=== PATIENT | female | born 1985 | race Two or more races ===

== ENCOUNTER 2022-03-16 19:30 | Emergency (ER) | payer MEDICAID, OTHER ==
[~2022-03-16] VITALS: Ht 152.4 cm; Wt 90.8 kg
[2022-03-16 20:40] VITALS: BP 136/93
[2022-03-16 21:27] LABS: Urine Bacteria MOD /hpf (None Seen); Urine Blood Negative /uL (Negative); Urine Mucus FEW (None Seen); Urine Specific Gravity 1.032 (1.001-1.035); Urine WBC 4 /hpf (0 - 5)
[2022-03-16 22:09] LABS: Basophils # (auto) 0.1 10 ^3/uL (0-0.2); Basophils % (auto) 0.6 % (0.0-2.0); Eosinophils # (auto) 0.2 10 ^3/uL (0-0.8); Eosinophils % (auto) 1.8 % (0.0-7.0); Hemoglobin 14.6 g/dL (12.2-16.2); Lymphocytes # (auto) 4.3 10 ^3/uL (0.4-5.4); Lymphocytes % (auto) 35.5 % (10.0-50.0); Mean Corpuscular Hgb Conc. 33.9 g/dL (32.0-36.0); Mean Corpuscular Volume 91.6 fL (80.0-100.0); Monocytes # (auto) 1.1 10 ^3/uL (0-1.3); Monocytes % (auto) 8.7 % (0.0-12.0); Neutrophils # (auto) 6.5 10 ^3/uL (1.6-8.6); Neutrophils % (auto) 53.4 % (37.0-80.0); Nucleated Red Blood Cells % 0.1 %; Red Blood Cells 4.69 10^6/uL (4.0-5.20); Red Cell Distribution Width 13.7 % (11.8-14.3); White Blood Cell 12.2 10^3/uL (4.4-10.8)
[2022-03-16 22:22] LABS: Albumin 3.4 g/dL (3.4-5.0); Potassium 4.5 mmol/L (3.5-5.1)
[2022-03-16 22:25] LABS: BUN/Creatinine Ratio 17.5; Bilirubin, Total 0.3 mg/dL (0.2-1.0); Total Protein 7.3 g/dL (6.4-8.2)
[2022-03-17] MEDS ORDERED: METR500T PO (14:25)
[2022-03-17] MEDS ORDERED: TRAM-297 PO (14:25)
[2022-03-17] MEDS ORDERED: CIPR-173 PO ×2 (14:25→14:29)
== END 2022-03-17 00:03 | disposition left against medical advice (07) ==
LOC: ER 19:35
DX: R10.30 Lower abdominal pain, unspecified (principal); K59.00 Constipation, unspecified; Z53.21 Procedure and treatment not carried out due to patient leaving prior to being seen by health care provider
CPT/HCPCS: 36415; 80053; 81001; 81025; 85025

== ENCOUNTER 2022-03-17 11:50 | Emergency (ER) | payer MEDICAID ==
[~2022-03-17] VITALS: Ht 154.9 cm; Wt 94.2 kg
[2022-03-17 12:49] LABS: Urine Bacteria FEW /hpf (None Seen); Urine Blood Negative /uL (Negative); Urine Mucus FEW (None Seen); Urine Specific Gravity 1.025 (1.001-1.035); Urine WBC 3 /hpf (0 - 5)
[2022-03-17] MEDS ORDERED: KETOROLAC TROMETH 60MG/2ML VIAL IM ONE ×2 (14:00→14:15)
[2022-03-17] MEDS ORDERED: TRAM-297 PO (14:25)
[2022-03-17] MEDS ORDERED: METR500T PO (14:25)
[2022-03-17] MEDS ORDERED: CIPR-173 PO ×2 (14:25→14:29)
[2022-03-17 14:30] VITALS: BP 128/76
== END 2022-03-17 15:00 | disposition home or self-care (01) ==
LOC: ER 11:50
DX: K57.92 Diverticulitis of intestine, part unspecified, without perforation or abscess without bleeding (principal); N20.0 Calculus of kidney; N30.00 Acute cystitis without hematuria
CPT/HCPCS: 74176; 81001; 96372; 99284; J1885

== ENCOUNTER 2024-05-02 12:32 | Emergency (ER) | payer MEDICAID ==
[~2024-05-02] VITALS: Ht 154.9 cm; Wt 109.0 kg
[~2024-05-02 12:32] MED LIST: CIPR-173 PO; METR500T PO; TRAM-297 PO
[2024-05-02 13:07] VITALS: BP 140/93; PULSE 115; RESP 22; TEMP 97.9; O2SAT 100
[2024-05-02] MEDS ORDERED: AMOX875T4 PO (14:05)
[2024-05-02] MEDS ORDERED: IBUP-1455 PO (14:05)
--- NOTE | 2024-05-02 14:06 | ED.PDOC ---
History of Present Illness(SKN HPI Comments Patient complaining of dog bite to the left foot medial side. Patient states she was in verbal altercation with her boyfriend and dog was biting on her foot. Injury happened approximately an hour ago. Bleeding controlled upon arrival, patient is unable to bear weight due to pain. Chief Complaint: Animal Bite Time Seen by MD: 12:53 Primary Care Provider: Unknown History of Present Illness: Nurses Notes Allergies: Coded Allergies: NO KNOWN ALLERGIES (Unverified , 03/17/22) Home Meds Active Scripts Ciprofloxacin Hcl (Cipro) 500 Mg Tab, 1 TAB PO BID, #20 TAB Prov:RITA DAUGHERTY 03/17/22 Tramadol Hcl (Ultram) 50 Mg Tab, 1 TAB PO TID, #20 TAB Prov:RITA DAUGHERTY 03/17/22 Metronidazole (Flagyl) 500 Mg Tab, 500 MG PO BID, #14 TAB Prov:RITA DAUGHERTY 03/17/22 Information Source: Patient Mode of Arrival: Wheelchair Severity: Mild Past Medical History PAST MEDICAL HISTORY: Denies Surgical History: 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 Family History Family History: Reviewed,noncontributory to illness Social History Smoker: Non-Smoker Alcohol: Denies ETOH Use Drugs: Denies Drug Use Lives In: Home Constitutional: denies: chills, diaphoresis, fatigue, fever, malaise, sweats, weakness, others EENTM: denies: blurred vision, double vision, ear bleeding, ear discharge, ear drainage, ear pain, ear ringing, eye pain, eye redness, hearing loss, mouth pain, mouth swelling, nasal discharge, nose bleeding, nose congestion, nose pain, photophobia, tearing, throat pain, throat swelling, voice changes, others Respiratory: denies: cough, hemoptysis, orthopnea, SOB at rest, shortness of breath, SOB with excertion, stridor, wheezing, others Cardiovascular: denies: chest pain, dizzy spells, diaphoresis, Dyspnea on exertion, edema, irregular heart beat, left arm pain, lightheadedness, pa lpitations, PND, syncope, others Gastrointestinal: denies: abdomen distended, abdominal pain, blood streaked bowels, constipated, diarrhea, dysphagia, difficulty swallowing, hematemesis, melena, nausea, poor appetite, poor fluid intake, rectal bleeding, rectal pain, vomiting, others Genitourinary: denies: abnormal vagina bleeding, burning, dyspareunia, dysuria, flank pain, frequency, hematuria, incontinence, pain, , vagina discharge, urgency, others Neurological: denies: dizziness, fainting, headache, left sided numbness, left sided weakness, numbness, paresthesia, pre-existing deficit, right sided numbness, right sided weakness, seizure, speech problems, tingling, tremors, weakness, others Musculoskeletal: denies: back pain, gout, joint pain, joint swelling, muscle pain, muscle stiffness, neck pain, others Integumetry: denies: bruises, change in color, change in hair/nails, dryness, laceration, lesions, lumps, rash, wounds, others Allergic/Immunocompromised: denies: Difficulty Healing, Frequent Infections, Hives, Itching, others Hematologic/Lymphatic: denies: anemia, blood clots, easy bleeding, easy bruising, swollen glands, others Physical Exam General Appearance: No Apparent Distress, Normal HEENT: Normal ENT Inspection, Pharynx Normal, TMs Normal Neck: Full Range of Motion, Non-Tender, Normal, Normal Inspection Respiratory: Chest Non-Tender, Lungs Clear, No Accessory Muscle Use, No Respiratory Distress, Normal Breath Sounds Cardiovascular: No Edema, No JVD, No Murmur, No Gallop, Normal Peripheral Pulses, Regular Rate/Rhythm Breast Exam: Deferred Gastrointestinal: No Organomegaly, Non Tender, No Pulsatile Mass, Normal Bowel Sounds, Soft Genitalia: Deferred Pelvic: Deferred Rectal: Deferred Extremities: No calf tenderness, Normal capillary refill, Normal inspection, Normal range of motion, Non-tender, No pedal edema Musculoskeletal : Apperance: Normal Neurologic: Alert, horse race timer II-XII nml as Tested, No Motor Deficits, Normal Affect, Normal Mood, No Sensory Deficits Cerebellar Function: Normal Reflexes: Normal Skin: Dry, Lacerations (2.5 cm laceration on medial side of the left foot jagged edges. Bleeding controlled.), Normal Color, Warm Lymphatic: No Adenopathy Was a procedure done? Was a procedure done?: Yes Sedation Sedation?: No Laceration Repair : Location Left foot Length 2.5 Anesthetic: Lidocaine Laceration Repair Wound Comple: epidermis/dermis repair Laceration Repair: Number of sutures (3), Size (4-0), Nylon, Bacitracin, Non-adherent gauze, Gauze Differential Diagnosis (INTG) Differential Diagnosis: Abrasion, Cellulitis, Contusion, Fracture X-Ray, Labs, Meds, VS Vital Signs Date Time Temp Pulse Resp B/P (MAP) Pulse Ox O2 Delivery O2 Flow Rate FiO2 05/02/24 13:07 115 22 100 Room Air 05/02/24 13:07 97.9 115 22 140/93 (109) 100 05/02/24 13:07 97.9 115 22 140/93 (109) 100 97.9 X-Ray, Labs, Meds, VS Comment Imaging: X-rays and CT scans were reviewed and interpreted by this provider, imaging shows no fractures and no pathological disease. Pending radiology review. Laboratory: Labs reviewed and interpreted by this provider. No significant abnormalities noted. Patient has prior medical visits reviewed. Med reconciliation performed Vital signs reviewed Time of 1ST Reevaluation: 14:05 Reevaluation 1ST: Improved Patient Education/Counseling: Diagnosis, Treatment, Need For Follow Up (Follow- up in the next 7-10 days for suture removal. Follow up in two days for wound recheck.) Family Education/Counseling: Diagnosis Departure 1 Departure Time of Disposition: 14:03 Impression: Primary Impression: Animal bite Additional Impression: Foot laceration Qualified Codes: S91.312A - Laceration without foreign body, left foot, initial encounter Disposition: HOME / SELF CARE / HOMELESS Condition: Fair e-Prescriptions Ibuprofen Micronized (Ibuprofen) 800 Mg Tab 800 MG PO TID, #30 TAB Prov: ALYSIA LUO 05/02/24 Amoxicillin & Pot Clavulanate (Amoxicillin/Potassium Cla) 875 Mg Tab 1 TAB PO BID for 10 Days, #20 TAB Prov: ALYSIA LUO 05/02/24 Discharged With: Self Critical Care Note Critical Care Time?: No Stability Stability form required: No Heart Score Heart Score: Heart Score Response (Comments) Value History N/A 0 EKG N/A 0 Age N/A 0 Risk Factors N/A 0 Troponin N/A 0 Total 0 ALYSIA LUO May 02, 2024 14:06
== END 2024-05-02 14:08 | disposition home or self-care (01) ==
LOC: ER 12:32
DX: S91.312A Laceration without foreign body, left foot, initial encounter (principal); Z90.49 Acquired absence of other specified parts of digestive tract; W54.0XXA Bitten by dog, initial encounter; Y93.89 Activity, other specified; Y92.89 Other specified places as the place of occurrence of the external cause; Y99.8 Other external cause status
CPT/HCPCS: 12001